=== PATIENT | female | born 1950 | race Caucasian/White ===

== ENCOUNTER 2023-03-15 11:42 | Emergency (ER) | payer MEDICARE, BC ==
[~2023-03-15] VITALS: Ht 157.5 cm; Wt 68.8 kg
[2023-03-15] MEDS ORDERED: furosemide 10 MG/1 ML 10ml inj IV ONE (12:00)
[2023-03-15 12:20] VITALS: BP 125/71
[2023-03-15 12:28] LABS: BASOPHILS % (AUTO) 0.4 % (0-1); EOSINOPHILS # (AUTO) 0.1 X10'3 (0-0.9); EOSINOPHILS % (AUTO) 1.1 % (0-6); HEMATOCRIT 37.1 % (35.0-45.0); HEMOGLOBIN 12.4 g/dl (12.0-16.0); LYMPHOCYTES # (AUTO) 2.7 X10'3 (1.1-4.8); LYMPHOCYTES % (AUTO) 39.9 % (21-51); MEAN CORPUSCULAR HEMOGLOBIN 32.1 PG (27.0-31.0); MEAN CORPUSCULAR HGB CONC 33.5 g/dL (33.0-36.5); MEAN CORPUSCULAR VOLUME 95.9 FL (78-98); MEAN PLATELET VOLUME 9.7 FL (7.4-10.4); MONOCYTES # (AUTO) 0.9 X10'3 (0-0.9); MONOCYTES % (AUTO) 12.5 % (2-12); NEUTROPHILS # (AUTO) 3.1 X10'3 (1.8-7.7); NEUTROPHILS % (AUTO) 46.1 % (42-75); PLATELET COUNT 183 X10'3 (140-440); RED BLOOD COUNT 3.87 X10'6 (4.20-5.60); WHITE BLOOD COUNT 6.8 X10'3 (4.5-11.0)
[2023-03-15 12:40] LABS: ALANINE AMINOTRANSFERASE 99 U/L (12-78); ALBUMIN 2.7 G/DL (3.4-5.0); ALBUMIN/GLOBULIN RATIO 0.6 (1.1-1.5); ALKALINE PHOSPHATASE 155 IU/L (46-116); ANION GAP 12 (8-16); ASPARTATE AMINO TRANSFERASE 120 U/L (10-37); BILIRUBIN,TOTAL 0.9 MG/DL (0.1-1.0); BLOOD UREA NITROGEN 20 MG/DL (7-18); BUN/CREATININE RATIO 19.6 (10.0-20.0); CALCIUM 8.7 MG/DL (8.5-10.1); CHLORIDE 101 MMOL/L (99-107); CREATININE 1.02 MG/DL (0.40-0.90); GLUCOSE 93 MG/DL (70-104); LIPASE 342 U/L (73-393); POTASSIUM 3.8 MMOL/L (3.5-5.1); SODIUM 135 MMOL/L (135-145); TOTAL PROTEIN 7.4 G/DL (6.4-8.2); eGFR 53 ML/MIN
[2023-03-15] MEDS ORDERED: LIDOcaine 1% 30ml preserv. free vial IJ ONE (12:55)
[2023-03-15 13:13] LABS: CLARITY,URINE SLIGHTLY CLOUDY (Clear); COLOR,URINE YELLOW (Yellow); GLUCOSE, URINE NEGATIVE (Neg); KETONES,URINE NEGATIVE (Neg); LEUKOCYTE ESTERASE ,URINE NEGATIVE (Neg); NITRITES, URINE NEGATIVE (Neg); OCCULT BLOOD,URINE NEGATIVE (Neg); PH,URINE 5.5 (4.8-8.0); PROTEIN,URINE NEGATIVE (Neg); UROBILINOGEN,URINE 0.2 E.U/dL (0.2-1.0)
[2023-03-15 13:15] LABS: UA COLLECTION TYPE CLN CATCH MIDSTREAM
[2023-03-15 13:23] LABS: BACTERIA,URINE FEW /HPF (Neg); MUCUS STRANDS FEW /LPF (Neg); RBC,URINE 0-2 /HPF (0-2); SQUAMOUS EPITHELIAL CELL,UR MANY /LPF (FEW); WBC,URINE 0-4 /HPF (0-4)
[2023-03-15] MEDS ORDERED: albumin (human) 25% 100 ML IV solution IV ONE (14:05)
== END 2023-03-15 15:55 | disposition home or self-care (01) ==
LOC: ER 11:44
DX: K75.81 Nonalcoholic steatohepatitis (NASH) (principal); R18.8 Other ascites; Z88.0 Allergy status to penicillin; Z88.2 Allergy status to sulfonamides
CPT/HCPCS: 36415; 49083; 80053; 81001; 83690; 85025; 85610; 96374; 96375; 99285; J1940; J3490; P9047

== ENCOUNTER 2023-04-06 07:14 | Day surgery (SDC) | payer MEDICARE, BC ==
[~2023-04-06] VITALS: Ht 157.5 cm; Wt 69.5 kg
[2023-04-06] VITALS (8 sets, daily range): BP systolic 99–136; BP diastolic 47–76; PULSE 67–93; RESP 14–15; TEMP 97.7; O2SAT 92–99
[2023-04-06] MEDS ORDERED: APIX5TAB3 (07:31)
[2023-04-06] MEDS ORDERED: ATOR10TA70 PO (07:31)
[2023-04-06] MEDS ORDERED: FURO20TA4 PO (07:31)
[2023-04-06] MEDS ORDERED: ZOLP5TAB8 PO (07:31)
[2023-04-06] MEDS ORDERED: METF-438 PO (07:31)
[2023-04-06] MEDS ORDERED: LISI20TA28 PO (07:31)
[2023-04-06] MEDS ORDERED: SPIR50TA5 PO (07:31)
[2023-04-06] MEDS ORDERED: albumin 25% 100mL bottle x 1 IV PRN (07:40)
== END 2023-04-06 10:00 | disposition home or self-care (01) ==
LOC: SSTAY O 07:14
PROVIDERS: ATTEND Radiology Vascular & Interventional Radiology
DX: R18.8 Other ascites (principal); R14.0 Abdominal distension (gaseous); K76.0 Fatty (change of) liver, not elsewhere classified; E11.9 Type 2 diabetes mellitus without complications; Z86.718 Personal history of other venous thrombosis and embolism; Z90.49 Acquired absence of other specified parts of digestive tract; F17.290 Nicotine dependence, other tobacco product, uncomplicated; Z88.0 Allergy status to penicillin; Z88.2 Allergy status to sulfonamides; Z79.01 Long term (current) use of anticoagulants; Z79.84 Long term (current) use of oral hypoglycemic drugs; Z79.899 Other long term (current) drug therapy; Z95.820 Peripheral vascular angioplasty status with implants and grafts
CPT/HCPCS: 49083; C1729; J3490; P9047; A6258; A6449

== ENCOUNTER 2023-04-30 07:23 | Day surgery (SDC) | payer MEDICARE, BC ==
[~2023-04-30] VITALS: Ht 157.5 cm; Wt 62.3 kg
[2023-04-30] VITALS (7 sets, daily range): BP systolic 114–130; BP diastolic 63–93; PULSE 61–67; RESP 16; TEMP 98; O2SAT 95–96
[~2023-04-30 07:23] MED LIST: APIX5TAB3; ATOR10TA70 PO; FURO20TA4 PO; LISI20TA28 PO; METF-438 PO; SPIR50TA5 PO; ZOLP5TAB8 PO
[2023-04-30] MEDS ORDERED: SPIR100T5 PO (08:12)
[2023-04-30] MEDS ORDERED: METF-438 PO (08:12)
[2023-04-30] MEDS ORDERED: VITE400C PO (08:16)
[2023-04-30] MEDS ORDERED: POTA-207 PO (08:16)
[2023-04-30] MEDS ORDERED: FURO40TA4 PO (08:16)
[2023-04-30] MEDS ORDERED: FURO-150 PO (08:16)
[2023-04-30] MEDS ORDERED: albumin 25% 100mL bottle x 1 IV PRN (09:00)
--- NOTE | 2023-04-30 09:40 | NUR ---
Patient had 4050ml of clear yellow fluid removed during paracentesis. Patient having anxiety about IV start for Albumin infusion and requested we not start IV. KANG Linder notified of patients request. Patient was given education about the risks and benefits of having and not having the Albumin infusion. Patient still refusing infusion at this time.
== END 2023-04-30 10:15 | disposition home or self-care (01) ==
LOC: SSTAY O 07:23
PROVIDERS: ATTEND Radiology Vascular & Interventional Radiology
DX: R18.8 Other ascites (principal); R14.0 Abdominal distension (gaseous); E11.9 Type 2 diabetes mellitus without complications; K76.0 Fatty (change of) liver, not elsewhere classified; D66 Hereditary factor VIII deficiency; D67 Hereditary factor IX deficiency; D68.2 Hereditary deficiency of other clotting factors; Z88.0 Allergy status to penicillin; Z88.2 Allergy status to sulfonamides; Z95.820 Peripheral vascular angioplasty status with implants and grafts; Z86.718 Personal history of other venous thrombosis and embolism; Z79.01 Long term (current) use of anticoagulants; Z90.49 Acquired absence of other specified parts of digestive tract; F17.290 Nicotine dependence, other tobacco product, uncomplicated; Z79.899 Other long term (current) drug therapy
CPT/HCPCS: 49083; C1729; J3490; A6258; A6449

== ENCOUNTER 2023-05-21 08:38 | Day surgery (SDC) | payer MEDICARE, BC ==
[~2023-05-21] VITALS: Ht 157.5 cm; Wt 62.7 kg
[~2023-05-21 08:38] MED LIST changes: -ATOR10TA70 PO; +FURO-150 PO; -FURO20TA4 PO; +FURO40TA4 PO; -LISI20TA28 PO; +POTA-207 PO; +SPIR100T5 PO; -SPIR50TA5 PO; +VITE400C PO; -ZOLP5TAB8 PO
[2023-05-21 08:55] VITALS: BP 128/71; PULSE 65; RESP 16; TEMP 99; O2SAT 99
[2023-05-21] MEDS ORDERED: albumin 25% 100mL bottle x 1 IV PRN (09:10)
[2023-05-21 10:05] VITALS: BP 114/65; PULSE 65; O2SAT 99
[2023-05-21 10:15] VITALS: BP 128/64; PULSE 71; O2SAT 96
[2023-05-21 10:30] VITALS: BP 130/65; PULSE 66; O2SAT 97
[2023-05-21 10:45] VITALS: BP 127/60; PULSE 66; O2SAT 98
[2023-05-21 11:00] VITALS: BP 124/60; PULSE 66; RESP 14; O2SAT 98
== END 2023-05-21 11:00 | disposition home or self-care (01) ==
LOC: SSTAY O 08:38
PROVIDERS: ATTEND Radiology Vascular & Interventional Radiology
DX: R18.8 Other ascites (principal); R14.0 Abdominal distension (gaseous); K76.0 Fatty (change of) liver, not elsewhere classified; E11.9 Type 2 diabetes mellitus without complications; D66 Hereditary factor VIII deficiency; D68.2 Hereditary deficiency of other clotting factors; D67 Hereditary factor IX deficiency; F17.290 Nicotine dependence, other tobacco product, uncomplicated; Z90.49 Acquired absence of other specified parts of digestive tract; Z86.718 Personal history of other venous thrombosis and embolism; Z98.890 Other specified postprocedural states; Z95.820 Peripheral vascular angioplasty status with implants and grafts; Z88.0 Allergy status to penicillin; Z88.2 Allergy status to sulfonamides; Z79.899 Other long term (current) drug therapy; Z79.01 Long term (current) use of anticoagulants; Z79.84 Long term (current) use of oral hypoglycemic drugs
CPT/HCPCS: 49083; C1729; J3490; P9047; A6258; A6449

== ENCOUNTER 2023-06-10 07:40 | Day surgery (SDC) | payer MEDICARE, BC ==
[~2023-06-10] VITALS: Ht 157.5 cm; Wt 65.4 kg
[~2023-06-10 07:40] MED LIST changes: -FURO-150 PO
[2023-06-10 08:00] VITALS: BP 123/78; PULSE 70; RESP 16; TEMP 98.2; O2SAT 99
[2023-06-10] MEDS ORDERED: albumin 25% 100mL bottle x 1 IV PRN (08:05)
[2023-06-10 09:41] VITALS: BP 131/73; PULSE 71; RESP 18; O2SAT 99
[2023-06-10 09:56] VITALS: BP 126/66; PULSE 69; RESP 18; O2SAT 99
[2023-06-10 10:11] VITALS: BP 137/64; PULSE 71; RESP 18; O2SAT 98
[2023-06-10 10:30] VITALS: BP 134/66; PULSE 63; RESP 16; O2SAT 100
[2023-06-10 12:57] VITALS: RESP 16; O2SAT 99
== END 2023-06-10 10:50 | disposition home or self-care (01) ==
LOC: SSTAY O 07:40
PROVIDERS: ATTEND Radiology Vascular & Interventional Radiology
DX: R18.8 Other ascites (principal); R14.0 Abdominal distension (gaseous); K76.0 Fatty (change of) liver, not elsewhere classified; E11.9 Type 2 diabetes mellitus without complications; D66 Hereditary factor VIII deficiency; D67 Hereditary factor IX deficiency; D68.2 Hereditary deficiency of other clotting factors; Z86.718 Personal history of other venous thrombosis and embolism; Z79.01 Long term (current) use of anticoagulants; Z90.49 Acquired absence of other specified parts of digestive tract; Z95.820 Peripheral vascular angioplasty status with implants and grafts; Z98.890 Other specified postprocedural states; Z79.899 Other long term (current) drug therapy; Z79.84 Long term (current) use of oral hypoglycemic drugs
CPT/HCPCS: 49083; C1729; J3490; P9047; A6258; A6449

== ENCOUNTER 2023-06-28 08:32 | Day surgery (SDC) | payer MEDICARE, BC ==
[~2023-06-28] VITALS: Ht 157.5 cm; Wt 66.4 kg
[2023-06-28 08:48] VITALS: BP 140/103; PULSE 73; RESP 16; TEMP 98.3; O2SAT 98
[2023-06-28] MEDS ORDERED: albumin 25% 100mL bottle x 1 IV PRN (08:55)
[2023-06-28] MEDS ORDERED: normal saline 1000ml 1,000 ML IV PRN (08:55)
[2023-06-28 10:00] VITALS: BP 112/65; PULSE 68; RESP 16; O2SAT 97
[2023-06-28 10:15] VITALS: BP 118/55; PULSE 68; RESP 16; O2SAT 96
[2023-06-28 10:30] VITALS: BP 124/67; PULSE 72; RESP 12; O2SAT 96
[2023-06-28 10:45] VITALS: BP 113/68; PULSE 74; RESP 16; O2SAT 96
[2023-06-28 11:00] VITALS: BP 108/62; PULSE 68; RESP 12; O2SAT 98
== END 2023-06-28 11:00 | disposition home or self-care (01) ==
LOC: SSTAY O 08:32
PROVIDERS: ATTEND Radiology Vascular & Interventional Radiology
DX: R18.8 Other ascites (principal); K76.0 Fatty (change of) liver, not elsewhere classified; E11.9 Type 2 diabetes mellitus without complications; Z86.718 Personal history of other venous thrombosis and embolism; Z79.899 Other long term (current) drug therapy; Z98.890 Other specified postprocedural states
CPT/HCPCS: 49083; C1729; J3490; P9047; 96360; A6258

== ENCOUNTER 2023-07-19 07:40 | Day surgery (SDC) | payer MEDICARE, BC ==
[~2023-07-19] VITALS: Ht 157.5 cm; Wt 66.0 kg
[2023-07-19 08:10] VITALS: BP 125/73; PULSE 72; RESP 16; TEMP 98.2; O2SAT 97
[2023-07-19] MEDS ORDERED: normal saline 1000ml 1,000 ML IV PRN (08:20)
[2023-07-19] MEDS: albumin 25% 100mL bottle x 1 IV PRN ×2 (08:47→09:33)
[2023-07-19 09:25] VITALS: BP 114/70; PULSE 69; RESP 16; O2SAT 96
[2023-07-19 09:40] VITALS: BP 130/64; PULSE 67; RESP 15; O2SAT 97
[2023-07-19 09:55] VITALS: BP 128/70; PULSE 66; RESP 17; O2SAT 98
[2023-07-19 10:00] VITALS: BP 145/95; PULSE 83; RESP 16; O2SAT 96
[2023-07-19 10:15] VITALS: BP 125/60; PULSE 73; RESP 16; O2SAT 97
== END 2023-07-19 10:30 | disposition home or self-care (01) ==
LOC: SSTAY O 07:40
PROVIDERS: ATTEND Radiology Vascular & Interventional Radiology
DX: R18.8 Other ascites (principal); R14.0 Abdominal distension (gaseous); K76.0 Fatty (change of) liver, not elsewhere classified; E11.9 Type 2 diabetes mellitus without complications; D66 Hereditary factor VIII deficiency; D67 Hereditary factor IX deficiency; D68.2 Hereditary deficiency of other clotting factors; Z86.718 Personal history of other venous thrombosis and embolism; Z79.01 Long term (current) use of anticoagulants; Z98.890 Other specified postprocedural states; Z90.49 Acquired absence of other specified parts of digestive tract; Z95.820 Peripheral vascular angioplasty status with implants and grafts; F17.290 Nicotine dependence, other tobacco product, uncomplicated; Z88.0 Allergy status to penicillin; Z88.2 Allergy status to sulfonamides; Z79.899 Other long term (current) drug therapy; Z79.84 Long term (current) use of oral hypoglycemic drugs
CPT/HCPCS: 49083; 82948; C1729; P9047; A6258; A6449

== ENCOUNTER 2023-08-06 07:24 | Day surgery (SDC) | payer MEDICARE, BC ==
[~2023-08-06] VITALS: Ht 157.5 cm; Wt 65.0 kg
[2023-08-06] MEDS ORDERED: albumin 25% 100mL bottle x 1 IV PRN (07:40)
[2023-08-06 08:00] VITALS: BP 130/67; PULSE 71; RESP 16; TEMP 97.9; O2SAT 99
[2023-08-06 09:30] VITALS: BP 132/67; PULSE 79; RESP 18; O2SAT 98
[2023-08-06 09:45] VITALS: BP 123/65; PULSE 71; RESP 18; O2SAT 97
[2023-08-06 10:00] VITALS: BP 119/68; PULSE 75; RESP 18; O2SAT 95
[2023-08-06 10:15] VITALS: BP 107/62; PULSE 72; RESP 18; O2SAT 97
[2023-08-06 10:30] VITALS: BP 104/59; PULSE 70; RESP 18; O2SAT 95
== END 2023-08-06 10:45 | disposition home or self-care (01) ==
LOC: SSTAY O 07:24
PROVIDERS: ATTEND Radiology Vascular & Interventional Radiology
DX: R18.8 Other ascites (principal); R14.0 Abdominal distension (gaseous); K76.0 Fatty (change of) liver, not elsewhere classified; E11.9 Type 2 diabetes mellitus without complications; D66 Hereditary factor VIII deficiency; D67 Hereditary factor IX deficiency; D68.2 Hereditary deficiency of other clotting factors; Z86.718 Personal history of other venous thrombosis and embolism; Z79.01 Long term (current) use of anticoagulants; Z98.890 Other specified postprocedural states; Z90.49 Acquired absence of other specified parts of digestive tract; F17.290 Nicotine dependence, other tobacco product, uncomplicated; Z95.820 Peripheral vascular angioplasty status with implants and grafts; Z88.0 Allergy status to penicillin; Z88.2 Allergy status to sulfonamides; Z79.899 Other long term (current) drug therapy; Z79.84 Long term (current) use of oral hypoglycemic drugs
CPT/HCPCS: 49083; C1729; P9047; A6258; A6449

== ENCOUNTER 2023-08-26 07:35 | Day surgery (SDC) | payer MEDICARE, BC ==
[2023-08-26] VITALS (7 sets, daily range): BP systolic 115–143; BP diastolic 57–78; PULSE 69–84; RESP 16; TEMP 98.3; O2SAT 95–97
[~2023-08-26] VITALS: Ht 157.5 cm; Wt 65.1 kg
[2023-08-26] MEDS ORDERED: albumin 25% 100mL bottle x 1 IV PRN (07:55)
== END 2023-08-26 10:15 | disposition home or self-care (01) ==
LOC: SSTAY O 07:35
PROVIDERS: ATTEND Radiology Vascular & Interventional Radiology
DX: R18.8 Other ascites (principal); R14.0 Abdominal distension (gaseous); K76.0 Fatty (change of) liver, not elsewhere classified; E11.9 Type 2 diabetes mellitus without complications; D66 Hereditary factor VIII deficiency; D67 Hereditary factor IX deficiency; D68.2 Hereditary deficiency of other clotting factors; Z86.718 Personal history of other venous thrombosis and embolism; Z98.890 Other specified postprocedural states; Z79.01 Long term (current) use of anticoagulants; Z90.49 Acquired absence of other specified parts of digestive tract; Z95.820 Peripheral vascular angioplasty status with implants and grafts; Z79.899 Other long term (current) drug therapy
CPT/HCPCS: 49083; C1729; P9047; 96360; A6258

== ENCOUNTER 2023-09-13 08:16 | Day surgery (SDC) | payer MEDICARE, BC ==
[~2023-09-13] VITALS: Ht 157.5 cm; Wt 64.3 kg
[2023-09-13] VITALS (7 sets, daily range): BP systolic 116–134; BP diastolic 60–69; PULSE 61–69; RESP 14–16; TEMP 98.2; O2SAT 94–98
[2023-09-13] MEDS ORDERED: albumin 25% 100mL bottle x 1 IV PRN (08:40)
== END 2023-09-13 10:20 | disposition home or self-care (01) ==
LOC: SSTAY O 08:16
PROVIDERS: ATTEND Radiology Diagnostic Radiology
DX: R18.8 Other ascites (principal); R14.0 Abdominal distension (gaseous); K76.0 Fatty (change of) liver, not elsewhere classified; E11.9 Type 2 diabetes mellitus without complications; D66 Hereditary factor VIII deficiency; D67 Hereditary factor IX deficiency; D68.2 Hereditary deficiency of other clotting factors; Z86.718 Personal history of other venous thrombosis and embolism; Z88.0 Allergy status to penicillin; Z88.2 Allergy status to sulfonamides; Z79.899 Other long term (current) drug therapy; Z79.84 Long term (current) use of oral hypoglycemic drugs; Z98.890 Other specified postprocedural states; F17.290 Nicotine dependence, other tobacco product, uncomplicated
CPT/HCPCS: 49083; C1729; P9047; 96360; A6258

== ENCOUNTER 2023-09-27 08:16 | Day surgery (SDC) | payer MEDICARE, BC ==
[~2023-09-27] VITALS: Ht 157.5 cm; Wt 63.5 kg
[2023-09-27] VITALS (7 sets, daily range): BP systolic 115–142; BP diastolic 50–80; PULSE 69–82; RESP 12–16; TEMP 98.1; O2SAT 96–98
[2023-09-27] MEDS ORDERED: albumin 25% 100mL bottle x 1 IV PRN (08:30)
[2023-09-27] MEDS ORDERED: METF-900 PO (08:55)
== END 2023-09-27 11:20 | disposition home or self-care (01) ==
LOC: SSTAY O 08:16
PROVIDERS: ATTEND Radiology Diagnostic Radiology
DX: R18.8 Other ascites (principal); R14.0 Abdominal distension (gaseous); K76.0 Fatty (change of) liver, not elsewhere classified; E11.9 Type 2 diabetes mellitus without complications; D67 Hereditary factor IX deficiency; D66 Hereditary factor VIII deficiency; D68.2 Hereditary deficiency of other clotting factors; F17.290 Nicotine dependence, other tobacco product, uncomplicated; Z86.718 Personal history of other venous thrombosis and embolism; Z79.01 Long term (current) use of anticoagulants; Z79.899 Other long term (current) drug therapy; Z98.890 Other specified postprocedural states; Z90.49 Acquired absence of other specified parts of digestive tract; Z95.820 Peripheral vascular angioplasty status with implants and grafts
CPT/HCPCS: 49083; 82948; C1729; P9047; A6258; A6449

== ENCOUNTER 2023-10-08 08:16 | Day surgery (SDC) | payer MEDICARE, BC ==
[~2023-10-08] VITALS: Ht 157.5 cm; Wt 66.2 kg
[2023-10-08] VITALS (7 sets, daily range): BP systolic 124–157; BP diastolic 59–80; PULSE 70–79; RESP 16; TEMP 97.9; O2SAT 98–100
[~2023-10-08 08:16] MED LIST changes: -METF-438 PO; +METF-900 PO
[2023-10-08] MEDS ORDERED: albumin 25% 100mL bottle x 1 IV PRN (08:45)
== END 2023-10-08 12:40 | disposition home or self-care (01) ==
LOC: SSTAY O 08:16
PROVIDERS: ATTEND Radiology Vascular & Interventional Radiology
DX: R18.8 Other ascites (principal); R14.0 Abdominal distension (gaseous); K76.0 Fatty (change of) liver, not elsewhere classified; E11.9 Type 2 diabetes mellitus without complications; D67 Hereditary factor IX deficiency; D66 Hereditary factor VIII deficiency; D68.2 Hereditary deficiency of other clotting factors; Z86.718 Personal history of other venous thrombosis and embolism; Z79.01 Long term (current) use of anticoagulants; Z98.890 Other specified postprocedural states; Z88.0 Allergy status to penicillin; Z88.2 Allergy status to sulfonamides; Z90.49 Acquired absence of other specified parts of digestive tract; F17.210 Nicotine dependence, cigarettes, uncomplicated; Z95.820 Peripheral vascular angioplasty status with implants and grafts; Z79.84 Long term (current) use of oral hypoglycemic drugs; Z79.899 Other long term (current) drug therapy
CPT/HCPCS: 49083; 82948; C1729; A6258

== ENCOUNTER 2023-10-19 08:39 | Day surgery (SDC) | payer MEDICARE, BC ==
[2023-10-19] VITALS (8 sets, daily range): BP systolic 113–140; BP diastolic 39–78; PULSE 58–65; RESP 16; TEMP 97.9; O2SAT 96–99
[~2023-10-19] VITALS: Ht 157.5 cm; Wt 65.3 kg
[~2023-10-19 08:39] MED LIST changes: -FURO40TA4 PO; -POTA-207 PO
[2023-10-19] MEDS ORDERED: TRAZ-256 PO (09:02)
[2023-10-19] MEDS ORDERED: HYDR50TA46 PO (09:02)
[2023-10-19] MEDS ORDERED: HYDR-3717 PO (09:08)
[2023-10-19] MEDS: albumin 25% 100mL bottle x 1 IV PRN (09:45)
== END 2023-10-19 11:00 | disposition home or self-care (01) ==
LOC: SSTAY O 08:39
PROVIDERS: ATTEND Radiology Vascular & Interventional Radiology
DX: R18.8 Other ascites (principal); E11.9 Type 2 diabetes mellitus without complications; F17.200 Nicotine dependence, unspecified, uncomplicated; Z86.718 Personal history of other venous thrombosis and embolism; Z79.01 Long term (current) use of anticoagulants; Z90.49 Acquired absence of other specified parts of digestive tract; Z98.890 Other specified postprocedural states
CPT/HCPCS: 49083; 82948; C1729; P9047; 96360; A6258

== ENCOUNTER 2023-10-29 07:09 | Day surgery (SDC) | payer MEDICARE, BC ==
[~2023-10-29] VITALS: Ht 157.5 cm; Wt 64.0 kg
[~2023-10-29 07:09] MED LIST changes: +HYDR-3717 PO; -METF-900 PO; +TRAZ-256 PO
[2023-10-29 07:30] VITALS: BP 81/55; PULSE 56; RESP 16; TEMP 98; O2SAT 98
[2023-10-29] MEDS ORDERED: LACT10SO3 PO (07:45)
[2023-10-29] MEDS: albumin 25% 100mL bottle x 1 IV PRN (07:58)
[2023-10-29 09:20] VITALS: BP 151/65; PULSE 63; RESP 16; O2SAT 98
[2023-10-29 09:30] VITALS: BP 116/53; PULSE 58; RESP 16; O2SAT 98
[2023-10-29 09:45] VITALS: BP 107/50; PULSE 58; RESP 16; O2SAT 98
[2023-10-29 10:00] VITALS: BP 104/57; PULSE 56; RESP 16; O2SAT 97
[2023-10-29 10:15] VITALS: BP 132/61; PULSE 58; RESP 16; O2SAT 99
== END 2023-10-29 10:15 | disposition home or self-care (01) ==
LOC: SSTAY O 07:09
PROVIDERS: ATTEND Radiology Vascular & Interventional Radiology
DX: R18.8 Other ascites (principal); R14.0 Abdominal distension (gaseous); K76.0 Fatty (change of) liver, not elsewhere classified; E11.9 Type 2 diabetes mellitus without complications; D67 Hereditary factor IX deficiency; D68.2 Hereditary deficiency of other clotting factors; D66 Hereditary factor VIII deficiency; Z88.0 Allergy status to penicillin; Z88.2 Allergy status to sulfonamides; Z86.718 Personal history of other venous thrombosis and embolism; Z79.01 Long term (current) use of anticoagulants; Z90.49 Acquired absence of other specified parts of digestive tract; Z95.820 Peripheral vascular angioplasty status with implants and grafts; Z79.899 Other long term (current) drug therapy
CPT/HCPCS: 49083; C1729; P9047; A6258